=== PATIENT | male | born 1955 | race Caucasian/White ===

== ENCOUNTER → 2019-12-05 13:00 | Outpatient (CLI) | payer MEDICAID, SELFPAY ==
--- NOTE | 2019-11-16 04:09 | HP_ITS ---
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 Hemanth Ferris MD) Bilateral inguinal hernia without obstruction or gangrene (Acute) Arthritis (Acute) Enlarged prostate (Acute) Urinary frequency (Acute) Surgical History (Updated 11/16/19 @ 13:39 by Wendy Jackson) History of bilateral inguinal herniorrhaphies (Acute) history left eye surgery (Acute) HPI HPI HPI: ARLENE LYNN, is a 64 M who presents to the office today for HPI HPI Surgical H&P: Yes HPI: ARLENE LYNN, is a 64 M who presents to the office today for additional surgical consultation regarding bilateral inguinal hernias. Patient's primary care physician is Dr. Jensen. Patient actually does not mention during his office visit that he is already been seen by 09/14/2019 who offered repair but advised the patient that he cease his tobacco use. The patient has been a lifelong cigarette smoker and he continues to smoke. He is typically smoked between a pack and a half and 2 packs/day. Recently he is made a concerted effort to cut down. He states that he is currently down to half a pack a day. 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 He is interested in getting his hernias repaired prior to the warmer weather. He remembers that as a youth he had bilateral inguinal hernia repairs externally performed. In addition he has urinary retention. He remembers times getting up 3 or 4 times a night. For that reason he was placed on doxazosin 4 mg p.o. twice daily. ROS General General: No weight change, appetite, fatigue, colon cancer, breast cancer or weakness HEENT HEENT: Yes eye surgery; no difficulty swallowing, eye injury, swollen glands or hoarseness Endo Endocrine: No thyroid disease, diabetes mellitus, thyroid cancer, Hair loss, heat intolerance or cold intolerance Skin Skin: No rash or changing moles Breast Breast: No left breast lump, right breast lump, nipple discharge, breast pain, abnormal mammogram, abnormal US or breast enlargement Musc Musculoskeletal: Yes arthritis; no back problems, rheumatoid arthritis, gout or joint pain Cardio Cardiovascular: No murmur, pacemaker, heart disease, atrial fibrillation, high blood pressure, heart attack, heart stent, palpitations, shortness of breat with exertion or chest pain Psych Psychiatric: No depression, anxiety or hearing voices Resp Respiratory: No shortness of breath, No sleep apnea, No cough, No COPD, No asthma, No emphysema, No wheezing Gastro Gastrointestinal: No abdominal pain, No nausea or vomiting, No diarrhea, No constipation, No blood in stool, No acid reflux, No hemorrhoids, No ulcers, No gallbladder problem, No black,tarry stools Ebn Hematologic: No blood thinners, No blood disorders, No bleeding, No anemia, No blood clots Neuro Neurologic: No system reviewed and no additional complaints, except as docu, No as per HPI, No abnormal walking, No abnormal hearing, No abnormal movements, No abnormal speech, No behavioral changes, No burning sensations, No confusion, No seizure-like activity, No unsteadiness, No dizziness, No localized weakness, No frequent falls, No headache(s), No lack of coordination, No loss of vision, No memory loss, No numbness, No other visual disturbances, No radiating pain, No restless legs, No sensory deficit, No fainting, No tingling, No tremor(s), No weakness, No other Exam Const General: cooperative Other: Patient appears to be far older than stated age. Extraordinarily heavy odor of tobacco in the room HENMT Head: normal to inspection Chest Breast Palpation: No nipple discharge Other: Increased anterior posterior diameter Resp Other: Clear breath sounds in the apices, diminished respiratory excursion Cardio Rate: regular rate Rhythm: regular rhythm Heart Sounds: no murmurs GI Palpation: soft, no hepatosplenomegaly Auscultation: normal bowel sounds Other: Quite sizable bilateral inguinal hernias right greater than left. Significant loops of bowel and bulging into the proximal scrotum. Testicles are descended and atrophic. Hernias are reducible with supine posturing. Neuro General: alert, awake, oriented x3 Extrem General: no calf tenderness bilaterally Psych Affect: normal affect Assessment & Plan Problems 1. Bilateral recurrent inguinal hernia without obstruction or gangrene K40.21 Plan Recurrent bilateral inguinal hernias. Clearly they enlarging with the patient's ongoing tobacco use and heavy physical labor. I have offered him an attempt at a laparoscopic bilateral inguinal herniorrhaphy with mesh. In detail I have discussed technique, benefit, risk, alternatives. No guarantees of success have been offered. I have also vigorously encouraged the patient to completely cease his tobacco use. He suggests that this is not likely. He has BPH with obstruction. He is on appropriate medication. We will schedule and proceed at his discretion. I appreciate the opportunity of assisting with his surgical care. Cc: Dr. Chris Ferris M.D., F.A.C.S. Coding Level of Care Code 15255 Diagnoses Bilateral recurrent inguinal hernia without obstruction or gangrene K40.21 ??Recurrence: recurrent 11/16/19 1610 <Electronically signed by Hemanth mathew MD> Date _ Hemanth Ferris MD
--- NOTE | 2019-12-11 08:59 | EKG12_ITS ---
Test Reason : PRE OP Blood Pressure : / mmHG Vent. Rate : 061 BPM Atrial Rate : 061 BPM P-R Int : 138 ms QRS Dur : 088 ms QT Int : 406 ms P-R-T Axes : 042 022 071 degrees QTc Int : 408 ms Normal sinus rhythm Normal ECG Confirmed by JOJO LUCAS ([id number]), general expeditor GAURAV MENDIOLA ([id number]) on 12/13/2019 9:17:34 AM Referred By: Hemanth Ferris Confirmed By:JOJO LUCAS
[2019-12-11 09:14] LABS: Hematocrit 48.1 % (40-54); Mean Corp Hgb Conc 33.3 g/dL (32-36); Mean Corpuscular Hgb 30.3 pg (27.0-32.0); Mean Corpuscular Volume 91.1 fL (80-94); Mean Platelet Vol. 10.1 fl (6.2-12.0); Platelet Count 265 K/mm3 (150-450); RBC Distribution Width CV 12.4 % (11.6-14.6); RBC Distribution Width SD 41.2 fl (35.1-43.9); Red Blood Count 5.28 M/mm3 (4.6-6.2); White Blood Count 10.4 K/mm3 (4.4-11.0)
[2019-12-11 09:41] LABS: Anion Gap 4 (5-15); BUN 23 mg/dL (7-18); BUN/Creat Ratio 22.8 RATIO (10-20); Calcium,Total 8.6 mg/dL (8.5-10.1); Chloride 111 mmol/L (98-107); Creatinine, Serum 1.01 mg/dL (0.70-1.30); EST Glomerular Filtration Rate 79 mL/min (>60); Est Glom Filt Rate - Afr Amer 96 mL/min (>60); Glucose 68 mg/dL (74-106); Potassium 4.1 mmol/L (3.5-5.1); Sodium Level 142 mmol/L (136-145)
== END ==
PROVIDERS: PCP Family Medicine; Referring Provider Surgery; Visit Provider Surgery
DX: Z01.818 Encounter for other preprocedural examination (principal); Z01.812 Encounter for preprocedural laboratory examination; Z01.810 Encounter for preprocedural cardiovascular examination; K40.20 Bilateral inguinal hernia, without obstruction or gangrene, not specified as recurrent; F17.210 Nicotine dependence, cigarettes, uncomplicated; R33.9 Retention of urine, unspecified
CPT/HCPCS: 36415; 80048; 85027; 93005

== ENCOUNTER 2020-11-26 08:23 | Day surgery (SDC) | payer MEDICAID, SELFPAY ==
[2020-11-14 10:07] VITALS: BMI 30.4
--- NOTE | 2020-11-24 09:29 | EKG12_ITS ---
Test Reason : PRE SURGERY Blood Pressure : / mmHG Vent. Rate : 085 BPM Atrial Rate : 085 BPM P-R Int : 144 ms QRS Dur : 086 ms QT Int : 358 ms P-R-T Axes : 051 026 037 degrees QTc Int : 426 ms Sinus rhythm with occasional Premature ventricular complexes Otherwise normal ECG Confirmed by HOWARD MONTOYA, ZAID ([id number]), sound editor KALYANI IBARRA ([id number]) on 11/25/2020 10:26:37 AM Referred By: Hemanth Ferris Confirmed By:ZAID LAWRENCE MD
[2020-11-24 10:35] LABS: Hemoglobin 16.3 g/dL (13.0-16.5); Mean Corpuscular Hgb 31.3 pg (27.0-32.0); Mean Corpuscular Volume 92.1 fL (80-94); Mean Platelet Vol. 10.8 fl (6.2-12.0); Platelet Count 221 K/mm3 (150-450); RBC Distribution Width SD 42.3 fl (35.1-43.9); Red Blood Count 5.21 M/mm3 (4.6-6.2); White Blood Count 10.4 K/mm3 (4.4-11.0)
[2020-11-24 11:09] LABS: Anion Gap 6 (5-15); BUN 21 mg/dL (7-18); BUN/Creat Ratio 19.6 RATIO (10-20); Calcium,Total 8.7 mg/dL (8.5-10.1); Chloride 111 mmol/L (98-107); Creatinine, Serum 1.07 mg/dL (0.70-1.30); EST Glomerular Filtration Rate 74 mL/min (>60); Est Glom Filt Rate - Afr Amer 89 mL/min (>60); Glucose 86 mg/dL (74-106); Potassium 4.2 mmol/L (3.5-5.1); Sodium Level 141 mmol/L (136-145)
[2020-11-26] VITALS (10 sets, daily range): BP systolic 105–124; BP diastolic 67–80; PULSE 63–77; RESP 16–18; TEMP 36.2–37; O2SAT 92–98; BMI 29.6
[2020-11-26] MEDS: Lactated Ringers 1,000 ML 100 ML IV (09:04)
--- NOTE | 2020-11-26 09:49 | PCM.HP.BLA ---
Problem List (1) Bilateral recurrent inguinal hernia without obstruction or gangrene Status: Acute History and Physical Date of Admission: 11/26/20 Intake Visit Reasons: INGUINAL HERNIA, SEEN IN Chief Complaint: Possible bilateral inguinal hernias Allergies No Known Allergies Allergy (Verified 11/14/20 10:06) Medications doxazosin 4 mg tablet 4 mg PO BID tab 11/16/19 [History Confirmed 11/14/20] ibuprofen 400 mg tablet 400 mg PO BID tab 11/16/19 [History Confirmed 11/14/20] oxybutynin chloride 5 mg tablet 5 mg PO BID 11/16/19 [History Confirmed 11/14/20] [facility] Medical History (Updated 11/14/20 @ 11:[address] Hemanth Ferris MD) Bilateral recurrent inguinal hernia without obstruction or gangrene (Acute) Bilateral inguinal hernia without obstruction or gangrene (Acute) Arthritis (Acute) Cataract (Acute) Enlarged prostate (Acute) Urinary frequency (Acute) Surgical History (Updated 12/21/19 @ 11:08 by Sonya Pacheco) History of bilateral inguinal herniorrhaphies (Acute) history left eye surgery (Acute) Family History (Updated 11/14/20 @ 10:05 by Ariadne Gunderson) Father No problems noted. Social History (Updated 11/14/20 @ 11:[address] Hemanth Ferris MD) Smoking Status: Current every day smoker alcohol intake: never substance use type: does not use HPI HPI HPI: ARLENE LYNN, is a 65 M who presents to the office today for ongoing surgical consultation regarding bilateral inguinal hernias. 1 year ago I recommended to him tobacco cessation and performing a laparoscopic bilateral inguinal hernia repair. Since that time the patient has cut down to approximately 12 cigarettes/day. His hernias have become larger and more bothersome. He is particularly concerned about the hernia on the right. It again becomes apparent that the patient remotely in infancy had bilateral inguinal hernia repairs. Therefore this represents recurrence bilaterally. He is still able to reduce them. He has never had a colonoscopy. He denies bright red blood per rectum or melena. My notes from November 16, 2019 reflect the following: HPI: ARLENE LYNN, is a 64 M who presents to the office today for additional surgical consultation regarding bilateral inguinal hernias. Patient's primary care physician is Dr. Mikey. Patient actually does not mention during his office visit that he is already been seen by 09/14/2019 who offered repair but advised the patient that he cease his tobacco use. The patient has been a lifelong cigarette smoker and he continues to smoke. He is typically smoked between a pack and a half and 2 packs/day. Recently he is made a concerted effort to cut down. He states that he is currently down to half a pack a day. 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 He is interested in getting his hernias repaired prior to the warmer weather. He remembers that as a youth he had bilateral inguinal hernia repairs externally performed. In addition he has urinary retention. He remembers times getting up 3 or 4 times a night. For that reason he was placed on doxazosin 4 mg p.o. twice daily. HPI HPI HPI: ARLENE LYNN, is a 65 M who presents to the office today for Exam Const General: cooperative, no acute distress Nutritional Appearance: obese Orientation: alert, awake HENVT Head: normal to inspection Chest Other: Increased anterior posterior diameter Resp Other: Scattered dry rales bilaterally Cardio Rate: regular rate Rhythm: regular rhythm GI Palpation: soft, no hepatosplenomegaly Other: Testicles are descended bilaterally. Sizable recurrent right inguinal hernia mostly reducible. Smaller and completely reducible left inguinal hernia Musc Cervical Spine: normal cervical lordosis Skin General: no rashes or lesions noted Neuro General: alert, awake Extrem General: no calf tenderness Psych Affect: normal affect Assessment & Plan Problems 1. Bilateral recurrent inguinal hernia without obstruction or gangrene K40.21 Plan Recurrent bilateral inguinal hernias larger on the right than on the left. COPD. BPH with bladder outlet obstruction I have again encouraged the patient to attempt to completely cease his tobacco use. He is aware of the recommendations and the increased risk of hernia recurrence. I discussed with him his BPH with bladder outlet obstruction. He is on 2 different medications. He will increase the dosage of his oxybutynin at night starting at least 1 week preoperatively. He is aware of the potential need to go home with a Harding catheter if is not able to void. I am recommending to him a laparoscopic bilateral recurrent inguinal hernia repair with mesh. He has had an opportunity to ask and have questions answered. We will schedule and proceed at his discretion. I strongly recommended to the patient in addition that he have a screening colonoscopy and I discussed with him the technique, benefit, risk, alternatives. I did recommend that we proceed with colonoscopy prior to the hernia repair. At this point the patient states that he is interested in the hernia repair but will delay on making a consideration regarding the colonoscopy. It is of note that he has never had a previous screening colonoscopy. He is currently denying acute GI symptoms. I appreciate the ongoing opportunity of assisting with the surgical care. Copy: Dr. Chris Ferris M.D., F.A.C.S. Coding Level of Care Code Off vis,est,level 3 Diagnoses Bilateral recurrent inguinal hernia without obstruction or gangrene K40.21 I have re-examined the patient. There are no clinical changes since date of exam.
--- NOTE | 2020-11-26 09:50 | DCINST_ITS ---
Discharge Diet: Light diet - advance as tolerated - if you have questions about your diet instructions, please talk to you doctor. Discharge Activity: May Not Drive - for 1 week or while taking narcotic pain medicine. May shower in (days): 1 Lifting Restrictions: 10 pounds Call your doctor if your incision/area has: Continuous Slow Oozing, Sudden Increased Bleeding, Increased Pain/ Swelling, Increased Redness, Foul Smelling Discharge Call your doctor if you observe: Fever of 101 or Higher Suture Line Care: Avoid Pulling/Pushing, Avoid Pinching/Bending Additional Dressing/Incision Instructions:: Change or remove dressing in 4 days. Leave steri-strips in place for 1 week. Allergies/Adverse Reactions: Allergies No Known Allergies Allergy (Verified 11/26/20 08:34) Medications to take at Discharge doxazosin 4 mg tablet 2 mg PO BID tab 11/16/19 ibuprofen 400 mg tablet 800 mg PO DAILY tab 11/16/19 oxybutynin chloride 5 mg tablet 2.5 mg PO QHS 11/16/19 Naproxen Sodium [Aleve] 440 mg PO QHS 11/19/20 Primary Care Physician: Chris Jensen DO [Primary Care Provider] - Test Results: Test results from this visit will be discussed in further detail at your follow- up appointment, if applicable. Please Follow Up With: Hemanth Ferris MD - [phone] When: Call to make an appointment to be seen in about 10 days.
[2020-11-26] MEDS: Cefazolin 2 GM in 0.9% Normal Saline 100 ML IV (10:20)
[2020-11-26] MEDS: Bupivacaine Mpf 0.5% 30 ML VIAL ×2 (10:40→10:50)
--- NOTE | 2020-11-26 11:34 | PCM.OPRPT ---
Problem List (1) Bilateral recurrent inguinal hernia without obstruction or gangrene Status: Acute Report of Operation Date of Procedure: 11/26/20 Pre-Operative Diagnosis: Bilateral recurrent inguinal hernias Post-Operative Diagnosis: Bilateral recurrent direct inguinal hernias Surgery/Procedure Performed:: Laparoscopic bilateral recurrent inguinal herniorrhaphies with bilateral Bard 3D max extra-large mesh. Right: Lot number [id number], reference #[id number], expiry date 04/22/2025. Left: Lot number [id number], reference #[id number], expiry date 10/23/2024. Secure strap Lot number [id number],Expiry date April 2022 Description of Surgical Findings:: Timeout and informed consent was obtained. 65-year-old gentleman was taken the operating place upon the table underwent general endotracheal intubation esthesia. Ancef 2 g were given intravenously. The abdomen sterilely prepped and draped. 0.5% Marcaine was used as a local anesthetic. Skin sites were preanesthetized. A total of 40 cc was used throughout the procedure. A vertical infraumbilical incision was created holding sutures of 0 Vicryl placed varies needle inserted saline drop test performed the abdomen was insufflated with CO2 to a pressure of 10 mmHg pressure. 10 mm trocar was inserted. This was rather lax was switched out to unassigned catheter. The abdomen was insufflated with CO2 to a pressure of 10 mmHg pressure. [address] in the right and left lower quadrant. There was evidence of recurrent bilateral direct inguinal hernias. There was fibrofatty omentum actually present in both hernial defects but this spontaneously reduced with placing the patient in Trendelenburg position. Sequentially bilaterally the peritoneum superior lateral to the internal ring was incised and carried medially. The peritoneum was completely dissected free so as to identify the direct space femoral area and indirect space. I performed that dissection bilaterally. It is of note that prior to that under laparoscopic guidance a ileal inguinal nerve block was performed with a Marcaine bilaterally. I then placed a extra-large Bard 3D max mesh on the left and on the right. I assured good positioning there was overlap. I secured the mesh with secure strap laterally superiorly and medially. There was excellent coverage of the direct recurrent defects. Good placement and securement of the mesh. The peritoneum was then approximated to itself using a combination of secure strap and hemolock clips. Complete obliteration to the mesh was achieved. The abdomen was allowed to deflate of the CO2 through an antiviral valve. The fascia at the umbilicus was approximated with a interrupted [id number] suture of 0 Vicryl. Skin edges approximate interrupted 4 Monocryl subdermal stitches. Steri-Strips Telfa OpSite dressings applied. Sponge and instrument and needle counts were reported to the surgeon to be correct. Specimens none. Drains none. Blood loss minimal. Hematnh Ferris M.D., F.A.C.S. Type of Anesthesia:: General Anesthesiologist: Devyn Munoz
[2020-11-26] MEDS: HYDROcodone Bitartrate/Apap 5/325 Tablet PO (13:59)
== END 2020-11-26 15:04 | disposition home or self-care (01) ==
LOC: SDC 08:23 → AC 08:25
PROVIDERS: PCP Family Medicine; Referring Provider Surgery; Visit Provider Surgery
PROC: (CPT 49650; principal; 2020-11-26 10:30)
DX: K40.21 Bilateral inguinal hernia, without obstruction or gangrene, recurrent (principal); Z20.828 Contact with and (suspected) exposure to other viral communicable diseases; M19.90 Unspecified osteoarthritis, unspecified site; F17.210 Nicotine dependence, cigarettes, uncomplicated; R33.8 Other retention of urine; N40.1 Benign prostatic hyperplasia with lower urinary tract symptoms; J44.9 Chronic obstructive pulmonary disease, unspecified; N13.8 Other obstructive and reflux uropathy; Z79.899 Other long term (current) drug therapy
CPT/HCPCS: 00840; 49651; 36415; 80048; 85027; 87426; 93005; C9803; J7120; C1781; J2405